=== PATIENT | female | born 1990 | race Caucasian/White ===

== ENCOUNTER → 2022-09-29 | Outpatient (REF) | payer BC | LOC: M PLALAB 15:00 | PROVIDERS: ATTEND Advanced Practice Midwife | DX: Z34.02 Encounter for supervision of normal first pregnancy, second trimester (principal) ==

== ENCOUNTER → 2022-11-03 | Outpatient (CLI) | payer BC ==
[2022-11-03 14:31] LABS: LDH LACTATE DEHYDROGENASE 146 U/L (120-246)
[2022-11-03 14:32] LABS: ALT/SGPT 16 U/L (7.0-40); AST/SGOT 14 U/L (<34); BILIRUBIN,TOTAL 0.6 MG/DL (0.3-1.2); CREATININE FOR GFR 0.44 MG/DL (0.55-1.30); GLOMERULAR FILTRATION RATE > 60.0 (>60)
[2022-11-03 14:34] LABS: HEMATOCRIT 38.8 % (36.0-47.0); HEMOGLOBIN 12.6 g/dl (12.0-15.5); MEAN CORPUSCULAR HEMOGLOBIN 29.8 pg (27.0-33.0); MEAN CORPUSCULAR HGB CONC 32.5 g/dl (32.0-36.5); MEAN CORPUSCULAR VOLUME 91.7 fl (80.0-96.0); PLATELET COUNT, AUTOMATED 263 10^3/uL (150-450); RED BLOOD COUNT 4.23 10^6/uL (4.00-5.40); URIC ACID 3.5 MG/DL (3.1-7.8); WHITE BLOOD COUNT 7.4 10^3/uL (4.0-10.0)
[2022-11-03 14:53] LABS: CREATININE,RANDOM URINE 187.8 MG/DL
[2022-11-03 14:54] LABS: TOTAL PROTEIN,RANDOM URINE < 6.0 MG/DL (0.0-14.0)
== END ==
LOC: M PLALAB 11:15
PROVIDERS: ATTEND Advanced Practice Midwife
DX: O16.9 Unspecified maternal hypertension, unspecified trimester (principal)

== ENCOUNTER → 2022-12-21 | Outpatient (CLI) | payer BC ==
[2022-12-21 11:07] LABS: HEMATOCRIT 34.2 % (36.0-47.0); MEAN CORPUSCULAR HEMOGLOBIN 29.7 pg (27.0-33.0); MEAN CORPUSCULAR HGB CONC 32.2 g/dl (32.0-36.5); MEAN CORPUSCULAR VOLUME 92.4 fl (80.0-96.0); PLATELET COUNT, AUTOMATED 222 10^3/uL (150-450)
== END ==
LOC: M PLALAB 07:22
PROVIDERS: ATTEND Advanced Practice Midwife
DX: Z34.02 Encounter for supervision of normal first pregnancy, second trimester (principal)

== ENCOUNTER → 2023-01-11 | Outpatient (CLI) | payer BC | LOC: M LAB 07:19 | PROVIDERS: ATTEND Advanced Practice Midwife | DX: Z53.9 Procedure and treatment not carried out, unspecified reason (principal) ==

== ENCOUNTER → 2023-01-12 | Outpatient (CLI) | payer BC | LOC: M LAB 07:28 | PROVIDERS: ATTEND Advanced Practice Midwife | DX: O99.810 Abnormal glucose complicating pregnancy (principal) ==

== ENCOUNTER 2023-01-22 09:13 | Outpatient (CLI) | payer BC ==
[~2023-01-22] VITALS: Ht 160 cm; Wt 102.3 kg
[2023-01-22 09:38] VITALS: BP 115/58
[2023-01-22] MEDS ORDERED: OMEP-173 PO (09:43)
[2023-01-22] MEDS ORDERED: SERT-141 PO (09:43)
[2023-01-22] MEDS ORDERED: ECOT81TA5 PO (09:43)
[2023-01-22] MEDS ORDERED: LABE100T71 PO (09:43)
[2023-01-22] MEDS ORDERED: PRENMIS3 PO (09:43)
== END 2023-01-22 11:30 | disposition home or self-care (01) ==
LOC: M LDO 09:13
PROVIDERS: ATTEND Advanced Practice Midwife
DX: O36.8130 Decreased fetal movements, third trimester, not applicable or unspecified (principal); O10.013 Pre-existing essential hypertension complicating pregnancy, third trimester; O44.43 Low lying placenta NOS or without hemorrhage, third trimester; Z98.870 Personal history of in utero procedure during pregnancy; Z3A.31 31 weeks gestation of pregnancy
CPT/HCPCS: 59025; G0463

== ENCOUNTER → 2023-02-01 | Outpatient (CLI) | payer BC ==
[~2023-02-01] MED LIST: ECOT81TA5 PO; LABE100T71 PO; OMEP-173 PO; PRENMIS3 PO; SERT-141 PO
== END ==
LOC: M WHC 09:57
PROVIDERS: ATTEND Advanced Practice Midwife
DX: O10.013 Pre-existing essential hypertension complicating pregnancy, third trimester (principal); Z3A.32 32 weeks gestation of pregnancy

== ENCOUNTER → 2023-02-22 | Outpatient (REF) | payer BC | LOC: M SFHCWAGY 13:37 | PROVIDERS: ATTEND Advanced Practice Midwife | DX: Z36.85 Encounter for antenatal screening for Streptococcus B (principal); O10.019 Pre-existing essential hypertension complicating pregnancy, unspecified trimester ==

== ENCOUNTER 2023-03-12 07:05 | Inpatient (IN) | payer BC ==
[2023-03-12] VITALS (14 sets, daily range): BP systolic 119–158; BP diastolic 65–92
[~2023-03-12] VITALS: Ht 160 cm; Wt 104.2 kg
[2023-03-12] MEDS ORDERED: TUMS500C PO (07:24)
[2023-03-12] MEDS ORDERED: HOME MED LIST COMPLETE! XX SCH (07:30)
[2023-03-12] MEDS ORDERED: TRANEXAMIC ACID INJection 1,000 MG in NS 100 ML IV PRN (07:50)
[2023-03-12] MEDS ORDERED: OXYTOCIN DRIP 30 UNITS in IV 1 EA IV PRN (07:50)
[2023-03-12] MEDS ORDERED: CARBOPROST TROMETHAMINE 250 MCG/ML AMP IM PRN (07:50)
[2023-03-12] MEDS ORDERED: LIDOCAINE 1% MDV 20ML VIAL INFIL PRN (07:50)
[2023-03-12] MEDS ORDERED: LACTATED RINGER'S 1000 ML IV STA (07:50)
[2023-03-12] MEDS ORDERED: LR 1,000 ML IV SCH (07:50)
[2023-03-12] MEDS ORDERED: METHYLERGONOVINE MALEATE 0.2MG/ML 1ML VIAL IM PRN (07:50)
[2023-03-12] MEDS ORDERED: PENICILLIN G POTASSIUM 5 MU IV 5 MU in D5W MINI-BAG PLUS 100 ML IV STA (07:50)
[2023-03-12 08:14] LABS: HEMATOCRIT 38.2 % (36.0-47.0); HEMOGLOBIN 11.3 g/dl (12.0-15.5); MEAN CORPUSCULAR HEMOGLOBIN 27.6 pg (27.0-33.0); MEAN CORPUSCULAR HGB CONC 29.6 g/dl (32.0-36.5); MEAN CORPUSCULAR VOLUME 93.4 fl (80.0-96.0); PLATELET COUNT, AUTOMATED 167 10^3/uL (150-450); RED BLOOD COUNT 4.09 10^6/uL (4.00-5.40); WHITE BLOOD COUNT 6.3 10^3/uL (4.0-10.0)
[2023-03-12 08:47] LABS: LDH LACTATE DEHYDROGENASE 224 U/L (120-246)
[2023-03-12 08:48] LABS: ALT/SGPT 11 U/L (7.0-40); AST/SGOT 20 U/L (<34); BILIRUBIN,TOTAL 0.5 MG/DL (0.3-1.2); CREATININE FOR GFR 0.56 MG/DL (0.55-1.30); GLOMERULAR FILTRATION RATE > 60.0 (>60)
[2023-03-12 09:08] LABS: URIC ACID 4.2 MG/DL (3.1-7.8)
[2023-03-12] MEDS: miSOPROStol 50MCG 1/2 TABLET PO SCH ×4 (09:17→22:02)
[2023-03-12 09:34] LABS: TOTAL PROTEIN,RANDOM URINE 52.2 MG/DL (0.0-14.0)
[2023-03-12 09:55] LABS: CREATININE,RANDOM URINE 302.4 MG/DL
[2023-03-12] MEDS ORDERED: PEN G POT 3,000,000 UNIT/50 ML 3,000,000 UNIT in IV 1 EA IV SCH (11:50)
[2023-03-12] MEDS: LABETALOL 100MG TAB PO SCH (22:04)
[2023-03-12] MEDS: CALCIUM CARBONATE 500 MG CHEW U/D PO PRN (23:34)
[2023-03-13] VITALS (24 sets, daily range): BP systolic 121–154; BP diastolic 65–90; TEMP 97.7; O2SAT 97–100
[2023-03-13] MEDS: miSOPROStol 50MCG 1/2 TABLET PO SCH (02:57)
[2023-03-13] MEDS ORDERED: PENICILLIN G POTASSIUM 5 MU IV 5 MU in D5W MINI-BAG PLUS 100 ML IV STA (03:23)
[2023-03-13] MEDS: ONDANSETRON 4MG 2ML VIAL IV PRN ×2 (04:41→20:58)
[2023-03-13] MEDS: CALCIUM CARBONATE 500 MG CHEW U/D PO PRN ×2 (04:41→22:19)
[2023-03-13] MEDS: PEN G POT 3,000,000 UNIT/50 ML 3,000,000 UNIT in IV 1 EA IV SCH ×3 (07:44→15:59)
[2023-03-13] MEDS: LABETALOL 100MG TAB PO SCH ×2 (09:00→20:37)
[2023-03-13] MEDS ORDERED: LR 1,000 ML IV SCH (09:10)
[2023-03-13] MEDS ORDERED: OXYTOCIN DRIP 30 UNITS in IV 1 EA IV SCH ×2 (09:10→17:00)
[2023-03-13] MEDS ORDERED: BICITRA 30ML SOLN UDC PO ONE (16:30)
[2023-03-13] MEDS ORDERED: ceFAZolin SOD 2 GM in IV 1 EA IV ONE (16:30)
[2023-03-13] MEDS ORDERED: ePHEDrine SULFATE 25 MG/5 ML(5MG/ML) SYRINGE As Ordered ONE (16:40)
[2023-03-13] MEDS ORDERED: MORPHINE PRES-FREE INJ 10 MG/10 ML VIAL As Ordered ONE (16:40)
[2023-03-13] MEDS ORDERED: OXYTOCIN 30UNITS IN 0.9% NaCl 500ML IV BAG As Ordered ONE ×2 (16:41→18:04)
[2023-03-13] MEDS ORDERED: PHENYLephrine 500MCG 5ML (100MCG/ML) SYRINGE As Ordered ONE (16:41)
[2023-03-13] MEDS ORDERED: METOCLOPRAMIDE INJ 10MG/2ML VIAL IV PRN (16:50)
[2023-03-13] MEDS ORDERED: NALOXONE INJ 0.4MG/1ML VIAL IV PRN ×2 (16:50)
[2023-03-13] MEDS ORDERED: **NOTE PATIENT COMMENT** MISC XX SCH (16:50)
[2023-03-13] MEDS ORDERED: diphenhydrAMINE 50MG/ML VIAL IV PRN (16:50)
[2023-03-13] MEDS: SLF 3 ML SYR IV SCH (16:50)
[2023-03-13] MEDS: LR 1,000 ML IV SCH (17:00)
[2023-03-13] MEDS ORDERED: RHOGAM 300MCG (1500IU) INJ IM SCH (17:00)
[2023-03-13] MEDS ORDERED: MOM 30ML SUSPENSION UDC PO PRN (17:00)
[2023-03-13] MEDS ORDERED: SIMETHICONE 80MG CHEW TAB PO PRN (17:00)
[2023-03-13] MEDS ORDERED: PERCOCET 5MG/325MG TAB PO PRN ×2 (17:00)
[2023-03-13] MEDS ORDERED: ONDANSETRON 4MG 2ML VIAL IV PRN (17:00)
[2023-03-13] MEDS ORDERED: ONDANSETRON 4MG 2ML VIAL As Ordered ONE (17:10)
[2023-03-13] MEDS ORDERED: KETOROLAC 60MG 2ML VIAL As Ordered ONE (17:10)
[2023-03-13] MEDS: DOCUSATE SODIUM 100MG CAPSULE PO SCH (20:37)
[2023-03-14] MEDS: KETOROLAC 30 MG/ML 1ML VIAL IV SCH ×3 (00:05→11:18)
[2023-03-14] MEDS: SLF 3 ML SYR IV SCH ×2 (00:49→11:18)
[2023-03-14] MEDS: LR 1,000 ML IV SCH (01:00)
[2023-03-14] MEDS: CALCIUM CARBONATE 500 MG CHEW U/D PO PRN ×2 (05:16→20:21)
[2023-03-14 06:01] VITALS: BP 137/80; O2SAT 98
[2023-03-14 07:45] LABS: HEMATOCRIT 31.1 % (36.0-47.0); HEMOGLOBIN 9.8 g/dl (12.0-15.5); MEAN CORPUSCULAR HEMOGLOBIN 27.4 pg (27.0-33.0); MEAN CORPUSCULAR HGB CONC 31.5 g/dl (32.0-36.5); MEAN CORPUSCULAR VOLUME 86.9 fl (80.0-96.0); PLATELET COUNT, AUTOMATED 179 10^3/uL (150-450); RED BLOOD COUNT 3.58 10^6/uL (4.00-5.40); WHITE BLOOD COUNT 8.7 10^3/uL (4.0-10.0)
[2023-03-14] MEDS: DOCUSATE SODIUM 100MG CAPSULE PO SCH ×2 (09:22→20:14)
[2023-03-14] MEDS: PRENATAL VITAMINS CHEWABLE TABLET PO SCH (09:22)
[2023-03-14] MEDS: LABETALOL 100MG TAB PO SCH ×2 (09:23→20:15)
[2023-03-14 10:00] VITALS: BP 122/70; O2SAT 98
[2023-03-14 14:00] VITALS: BP 117/64; O2SAT 98
[2023-03-14 18:00] VITALS: BP 133/68; O2SAT 99
[2023-03-14] MEDS: IBUPROFEN 800 MG TAB PO SCH (20:14)
[2023-03-14 20:15] VITALS: BP 129/74
[2023-03-14 21:59] VITALS: BP 130/65; O2SAT 98
[2023-03-15 02:02] VITALS: BP 125/65; O2SAT 98
[2023-03-15] MEDS: IBUPROFEN 800 MG TAB PO SCH ×2 (05:25→12:48)
[2023-03-15] MEDS ORDERED: IBUP80TA PO (06:01)
[2023-03-15] MEDS ORDERED: PERCOCET PO (06:01)
[2023-03-15] MEDS ORDERED: COLA100C5 PO (06:01)
[2023-03-15 06:24] VITALS: BP 139/79; O2SAT 98
[2023-03-15 08:52] VITALS: BP 139/86
[2023-03-15] MEDS: LABETALOL 100MG TAB PO SCH (08:52)
[2023-03-15] MEDS: PRENATAL VITAMINS CHEWABLE TABLET PO SCH (08:52)
[2023-03-15] MEDS: DOCUSATE SODIUM 100MG CAPSULE PO SCH (08:52)
[2023-03-15] MEDS ORDERED: MEASLES,MUMPS,RUBELLA VACCINE INJ (MMR-II) SC.IMMUN ONE (09:00)
[2023-03-15 10:00] VITALS: BP 117/62; O2SAT 98
== END 2023-03-15 13:37 | disposition home or self-care (01) | DRG 540 ==
LOC: M LDI 07:05 → M OBS 03-13 20:59
PROVIDERS: ADMIT Advanced Practice Midwife; ATTEND Advanced Practice Midwife
PROC: 3E0P7GC Introduction of Other Therapeutic Substance into Female Reproductive, Via Natural or Artificial Opening (ICD-10-PCS; 2023-03-12)
PROC: 10D00Z1 Extraction of Products of Conception, Low, Open Approach (ICD-10-PCS; principal; 2023-03-13 16:30)
DX: O10.02 Pre-existing essential hypertension complicating childbirth (principal); O99.824 Streptococcus B carrier state complicating childbirth; Z37.0 Single live birth; Z3A.38 38 weeks gestation of pregnancy; O61.0 Failed medical induction of labor

== ENCOUNTER → 2023-07-15 | Outpatient (CLI) | payer BC ==
[~2023-07-15] MED LIST changes: +COLA100C5 PO; +IBUP80TA PO; +LABE100T40 PO; -LABE100T71 PO; +PERCOCET PO; +TUMS500C PO
[2023-07-15 11:01] LABS: BASO % 0.7 % (0.0-1.0); EOS # 0.1 10^3/uL (0.0-0.5); EOS % 1.3 % (0.0-3.0); HEMATOCRIT 40.7 % (36.0-47.0); HEMOGLOBIN 13.1 g/dl (12.0-15.5); LYMPH # 2.2 10^3/uL (1.5-5.0); LYMPH % 39.6 % (24.0-44.0); MEAN CORPUSCULAR HEMOGLOBIN 28.5 pg (27.0-33.0); MEAN CORPUSCULAR HGB CONC 32.2 g/dl (32.0-36.5); MEAN CORPUSCULAR VOLUME 88.7 fl (80.0-96.0); MONO # 0.5 10^3/uL (0.0-0.8); MONO % 8.7 % (2.0-8.0); NEUTROPHILS # 2.7 10^3/uL (1.5-8.5); NEUTROPHILS % 49.5 % (36.0-66.0); PLATELET COUNT, AUTOMATED 238 10^3/uL (150-450); RED BLOOD COUNT 4.59 10^6/uL (4.00-5.40); WHITE BLOOD COUNT 5.4 10^3/uL (4.0-10.0)
[2023-07-15 11:32] LABS: ALBUMIN 3.3 G/DL (3.2-5.2); ALKALINE PHOSPHATASE 91 U/L (46-116); ALT/SGPT 13 U/L (7.0-40); AST/SGOT 16 U/L (<34); BILIRUBIN,TOTAL 0.9 MG/DL (0.3-1.2); BLOOD UREA NITROGEN 14 MG/DL (9-23); CALCIUM LEVEL 8.4 MG/DL (8.5-10.1); CARBON DIOXIDE LEVEL 26 MMOL/L (20-31); CHLORIDE LEVEL 106 MMOL/L (98-107); CHOLESTEROL LEVEL 220 MG/DL (<200); CHOLESTEROL RISK RATIO 3.14 (<5); CREATININE FOR GFR 0.67 MG/DL (0.55-1.30); GLOMERULAR FILTRATION RATE > 60.0 (>60); GLUCOSE, FASTING 97 MG/DL (60-100); POTASSIUM SERUM 4.3 MMOL/L (3.5-5.1); SODIUM LEVEL 139 MMOL/L (136-145); THYROID STIMULATING HORMONE 1.068 uIU/ML (0.55-4.78); TOTAL 25(OH) VITAMIN D 44.8 NG/ML (20.0-100.0); TOTAL PROTEIN 6.6 G/DL (5.7-8.2); TRIGLYCERIDES LEVEL 180 MG/DL (<150)
[2023-07-15 11:33] LABS: FREE T4 1.07 NG/DL (0.89-1.76)
== END ==
LOC: M PLALAB 08:13
PROVIDERS: ATTEND Nurse Practitioner Family
DX: I10 Essential (primary) hypertension (principal); E66.01 Morbid (severe) obesity due to excess calories

== ENCOUNTER → 2023-07-22 | Outpatient (REF) | payer BC | LOC: M SFHCDERM 17:06 | PROVIDERS: ATTEND Physician Assistant | DX: I78.1 Nevus, non-neoplastic (principal) ==

== ENCOUNTER → 2023-09-07 | Outpatient (REF) | payer BC | LOC: M SFHCDERM 09:15 | PROVIDERS: ATTEND Physician Assistant | DX: D22.5 Melanocytic nevi of trunk (principal) ==

== ENCOUNTER → 2024-07-12 | Outpatient (REF) | payer BC ==
[2024-07-15 16:03] LABS: HPV APTIMA Not Detected (Not Detected)
== END ==
LOC: M LAB REF 09:48
PROVIDERS: ATTEND Nurse Practitioner Family
DX: Z12.4 Encounter for screening for malignant neoplasm of cervix (principal)
CPT/HCPCS: 87624; G0123

== ENCOUNTER → 2024-08-01 | Outpatient (CLI) | payer BC ==
[2024-08-01 10:59] LABS: ALBUMIN 3.4 G/DL (3.2-5.2); ALKALINE PHOSPHATASE 66 U/L (35-104); ALT/SGPT 18 U/L (7.0-40); AST/SGOT 17 U/L (<34); BILIRUBIN,TOTAL 0.6 MG/DL (0.3-1.2); BLOOD UREA NITROGEN 18 MG/DL (9-23); CALCIUM LEVEL 9.1 MG/DL (8.5-10.1); CARBON DIOXIDE LEVEL 27 MMOL/L (20-31); CHLORIDE LEVEL 106 MMOL/L (98-107); CHOLESTEROL LEVEL 231 MG/DL (<200); CHOLESTEROL RISK RATIO 3.66 (<5); CREATININE FOR GFR 0.68 MG/DL (0.55-1.30); GLOMERULAR FILTRATION RATE > 90.0 (>60); GLUCOSE, FASTING 101 MG/DL (60-100); HDL CHOLESTEROL 63.1 MG/DL (>40); LDL CHOLESTEROL 132.5 MG/DL (<100); NON-HDL-C 167.9 MG/DL; POTASSIUM SERUM 4.5 MMOL/L (3.5-5.1); SODIUM LEVEL 140 MMOL/L (136-145); TOTAL PROTEIN 7.1 G/DL (5.7-8.2); TRIGLYCERIDES LEVEL 177 MG/DL (<150)
[2024-08-01 11:00] LABS: THYROID STIMULATING HORMONE 1.265 uIU/ML (0.55-4.78)
[2024-08-01 11:01] LABS: FREE T4 1.16 NG/DL (0.89-1.76); TOTAL 25(OH) VITAMIN D 51.5 NG/ML (20.0-100.0)
[2024-08-01 11:04] LABS: BASO # 0.1 10^3/uL (0.0-0.2); BASO % 0.4 % (0.0-1.0); EOS # 5.9 10^3/uL (0.0-0.5); HEMATOCRIT 43.9 % (36.0-47.0); HEMOGLOBIN 14.5 g/dl (12.0-15.5); LYMPH # 3.1 10^3/uL (1.5-5.0); LYMPH % 26.1 % (24.0-44.0); MEAN CORPUSCULAR HEMOGLOBIN 29.8 pg (27.0-33.0); MEAN CORPUSCULAR VOLUME 90.1 fl (80.0-96.0); MONO # 0.7 10^3/uL (0.0-0.8); MONO % 5.6 % (2.0-8.0); NEUTROPHILS % 16.6 % (36.0-66.0); PLATELET COUNT, AUTOMATED 252 10^3/uL (150-450); RED BLOOD COUNT 4.87 10^6/uL (4.00-5.40); WHITE BLOOD COUNT 11.7 10^3/uL (4.0-10.0)
[2024-08-01 13:08] LABS: EOS % 50.4 % (0.0-3.0)
== END ==
LOC: M PLALAB 07:44
PROVIDERS: ATTEND Nurse Practitioner Family
DX: I10 Essential (primary) hypertension (principal)

== ENCOUNTER → 2024-08-14 | Outpatient (CLI) | payer BC ==
[2024-08-14 16:05] LABS: BASO % 0.6 % (0.0-1.0); EOS % 14.8 % (0.0-3.0); HEMATOCRIT 41.8 % (36.0-47.0); HEMOGLOBIN 13.5 g/dl (12.0-15.5); LYMPH # 2.9 10^3/uL (1.5-5.0); LYMPH % 44.6 % (24.0-44.0); MEAN CORPUSCULAR HEMOGLOBIN 29.9 pg (27.0-33.0); MEAN CORPUSCULAR HGB CONC 32.3 g/dl (32.0-36.5); MEAN CORPUSCULAR VOLUME 92.5 fl (80.0-96.0); MONO # 0.5 10^3/uL (0.0-0.8); MONO % 7.6 % (2.0-8.0); NEUTROPHILS # 2.1 10^3/uL (1.5-8.5); NEUTROPHILS % 32.4 % (36.0-66.0); PLATELET COUNT, AUTOMATED 267 10^3/uL (150-450); RED BLOOD COUNT 4.52 10^6/uL (4.00-5.40); WHITE BLOOD COUNT 6.4 10^3/uL (4.0-10.0)
[2024-08-14 16:12] LABS: ALBUMIN 3.5 G/DL (3.2-5.2); ALKALINE PHOSPHATASE 65 U/L (35-104); ALT/SGPT 22 U/L (7.0-40); AST/SGOT 20 U/L (<34); BILIRUBIN,TOTAL 0.5 MG/DL (0.3-1.2); BLOOD UREA NITROGEN 13 MG/DL (9-23); CALCIUM LEVEL 9.6 MG/DL (8.5-10.1); CARBON DIOXIDE LEVEL 28 MMOL/L (20-31); CHLORIDE LEVEL 105 MMOL/L (98-107); GLOMERULAR FILTRATION RATE > 90.0 (>60); GLUCOSE, FASTING 84 MG/DL (60-100); MAGNESIUM LEVEL 2.1 MG/DL (1.8-2.4); POTASSIUM SERUM 4.3 MMOL/L (3.5-5.1); SODIUM LEVEL 141 MMOL/L (136-145)
[2024-08-18 03:17] LABS: TISSUE TRANSGLUTAMINASE IgA < 1.0 U/mL (<15.0); TISSUE TRANSGLUTAMINASE IgG < 1.0 U/mL (<15.0)
== END ==
LOC: M PLALAB 12:17
PROVIDERS: ATTEND Nurse Practitioner Family
DX: R14.0 Abdominal distension (gaseous) (principal)

== ENCOUNTER → 2024-08-15 | Outpatient (REF) | payer BC | LOC: M LAB REF 10:34 | PROVIDERS: ATTEND Nurse Practitioner Family | DX: R14.0 Abdominal distension (gaseous) (principal) ==

== ENCOUNTER → 2024-10-18 | Outpatient (REF) | payer BC | LOC: M SFHCDERM 13:17 | PROVIDERS: ATTEND Physician Assistant | DX: D22.4 Melanocytic nevi of scalp and neck (principal) ==